=== PATIENT | female | born 1950 | race Caucasian/White ===

== ENCOUNTER 2020-08-03 09:07 | Outpatient (CLI) | payer BC | END 2020-08-03 09:08 | disposition home or self-care (01) | LOC: CSHCT 09:07 | PROVIDERS: ATTEND Family Medicine | DX: R10.12 Left upper quadrant pain (principal); K86.89 Other specified diseases of pancreas | CPT/HCPCS: 74178; 82565 ==

== ENCOUNTER 2022-03-28 16:19 | Emergency (ER) | payer OTHER ==
[2022-03-28] MEDS ORDERED: HYDROcodone/Acetaminophen 10/325 mg Tablet ONE (16:39)
== END 2022-03-28 18:24 | disposition home or self-care (01) ==
LOC: CSHERS 16:19
DX: S42.252A Displaced fracture of greater tuberosity of left humerus, initial encounter for closed fracture (principal); W01.0XXA Fall on same level from slipping, tripping and stumbling without subsequent striking against object, initial encounter